=== PATIENT | female | born 1990 | race Caucasian/White ===

== ENCOUNTER 2016-08-27 11:36 | Emergency (ER) | payer BC ==
[~2016-08-27] VITALS: Ht 157.5 cm; Wt 100.2 kg
[2016-08-27 11:39] VITALS: TEMP 36.6; Ht 157.5 cm; Wt 100.2 kg
[2016-08-27] MEDS ORDERED: DIPH1TAB87 PO (12:06)
[2016-08-27] MEDS ORDERED: PRED20TA PO (12:24)
[2016-08-27 12:44] VITALS: BP 148/96; PULSE 84; O2SAT 99
--- NOTE | 2016-08-27 17:47 | EMERGENCY ROOM VISIT NOTE ---
History Report prepared by Nelidaibjaspreet: Arley Cain Under the Supervision of: Dr. Leroy Kong M.D. First contact with patient: 12:15 Chief Complaint: ALLERGIC REACTION Stated Complaint: BREAKOUT, HIVES, SWELLING EVERYWHERE Nursing Triage Summary: pt has a red rash to arms that started after finals yesterday and she reports it has gotten worse pt has no new soaps or lotions no resp complaints History of Present Illness The patient is a 26 year old female who presents to the Emergency Room with complaints of a persistent rash that started around 1430 yesterday. The patient was taking a final exam when she noticed hives breaking out on her right arm. The hives spread to her left arm and today are all over her body. The rash is itchy. She also noticed swelling around her face today, especially above the eyes. She denies shortness of breath or trouble breathing. She also denies tongue swelling. She noticed the rash around her waistband but not under her socks. She denies any recent fevers. The patient had two tabs of Benadryl yesterday without relief. The patient did not eat anything out of the ordinary yesterday, including tree nuts or seafood. She does not have known allergies, and allergies do not run in her family. The patient denies using any new medications, soaps, detergents, or cosmetics. She denies the possibility of . Source of History: patient Onset: 1430 yesterday Position: other (global) Quality: other (allergic reaction) Timing: other (persistent) Associated Symptoms: + rash, No SOB, No fevers Review of Systems See HPI for pertinent positives & negatives. A total of 10 systems reviewed and were otherwise negative. Past Medical & Surgical Medical Problems: (1) No known allergies (2) No known health problems Family History No family history of allergies Social History Smoking Status: Never Smoker Occupation Status: [employer] student Current/Historical Medications Scheduled Diphenhydramine Hcl (Benadryl Allergy), 2 TABS PO UD Prednisone (Prednisone), 3 TAB PO DAILY Allergies Coded Allergies: No Known Allergies (Unverified , 08/27/16) Physical Exam Vital Signs Date Time Temp Pulse Resp B/P Pulse Ox O2 Delivery O2 Flow Rate FiO2 08/27/16 12:44 84 18 148/96 99 Room Air 08/27/16 12:40 84 18 148/96 99 08/27/16 11:39 36.6 89 18 145/96 99 Room Air Physical Exam Constitutional: Vital signs reviewed. Eyes: Pupils are equal round reactive to light. Conjunctiva are noninjected. ENT: Pharynx is clear without erythema or exudate. No swelling of the lips tongue or uvula. Mucous membranes are moist. Neck supple without meningeal signs. Respiratory: Clear to auscultation bilaterally. Breath sounds are equal bilaterally. No stridor or wheezing. Cardiovascular: Regular rate and rhythm. No rubs or gallops. GI: Soft, nondistended and nontender. Bowel sounds are present. Musculoskeletal: No peripheral edema. No lower extremity tenderness. Integumentary: Scattered hives throughout the trunk, upper and lower extremities. No petechia or purpura. Neurological: The patient is awake and alert. No focal deficits. Psychiatric: Normal affect. Medical Decision & Procedures ED Course 1220: The patient was evaluated in room B9. A complete history and physical exam was performed. 1225: Discussed the discharge instructions with her. She verbalized understanding. The patient will be prepared for discharge. Medical Decision This is a 26-year-old female presents with a rash. Differential diagnosis includes urticaria, allergic reaction, dermatitis. I did perform a limited focused review of portions of the patient's old chart on the electronic medical record. The patient has had no prior visits to this hospital. I did evaluate the patient as noted above. The patient is presenting with a rash consistent with urticaria. It does move around and changes according to the patient. It is itchy in nature. Most likely this is an allergic reaction. At this time it is unclear what may be causing it. She does not have any airway involvement or angioedema. I did recommend antihistamines at home and the patient was given a prescription for prednisone. She was advised follow up with an examination scorer for further evaluation. She was discharged in good condition and given return instructions as outlined below. Impression Primary Impression: Urticaria Scribe Attestation The scribe's documentation has been prepared under my direct and personally reviewed by me in its entirety. I confirm that the note above accurately reflects all work, treatment, procedures, and medical decision making performed by me. Departure Information Dispostion Home / Self-Care Prescriptions Prednisone (Prednisone) 20 Mg Tab 3 TAB PO DAILY, #15 TAB FOR 4 DAYS Prov: Leroy Kong M.D. 08/27/16 Referrals No Doctor, Assigned (PCP) Forms HOME CARE DOCUMENTATION FORM, IMPORTANT VISIT INFORMATION Patient Instructions ED Urticaria, My [facility] Additional Instructions You have been examined and treated today on an emergency basis only. This is not a substitute for, or an effort to provide, complete comprehensive medical care. It is impossible to recognize and treat all injuries or illnesses in a single emergency department visit. It is therefore important that you follow up closely with an examination scorer to help determine the cause of your symptoms. Call as soon as possible for an appointment. Return for worsening symptoms or if you develop swelling to your tongue or throat or difficulty breathing or any other concerning symptoms. Take antihistamines [id number] and start prednisone today.
== END 2016-08-27 12:40 | disposition home or self-care (01) ==
LOC: C.EDB 11:38
DX: L50.9 Urticaria, unspecified (principal)